=== PATIENT | female | born 1960 | race Caucasian/White ===

== ENCOUNTER 2021-11-04 20:44 | Emergency (ER) | payer BC ==
[2021-11-04] MEDS ORDERED: Ondansetron 4 MG Tab.DIS PO ONE (21:01)
[2021-11-04] MEDS ORDERED: Ketorolac 30 MG/ML SDV IM ONE (21:01)
== END 2021-11-04 22:31 | disposition home or self-care (01) ==
LOC: JD.ED 20:44
DX: U07.1 COVID-19 (principal); Z88.0 Allergy status to penicillin
CPT/HCPCS: 36415; 71045; 80053; 85025; 86140; 96372; 99283; A9270; J1885